=== PATIENT | female | born 1945 | race Caucasian/White ===

== ENCOUNTER 2016-08-03 11:40 | Emergency (ER) | payer MEDICARE, OTHER ==
[2016-08-03 11:34] LABS: BASOPHILS 0.4 %; BASOPHILS ABSOLUTE 0.03 10/3/uL (0.0-0.16); EOSINOPHILS 1.1 %; EOSINOPHILS ABSOLUTE 0.09 10/3/uL (0.0-0.53); HEMOGLOBIN 10.4 g/dL (12.0-16.0); IMMATURE GRANULOCYTES 0.2 %; IMMATURE GRANULOCYTES ABSOLUTE 0.02 10/3/uL (0.0-0.11); LYMPHOCYTES 17.4 %; LYMPHOCYTES ABSOLUTE 1.39 10/3/uL (0.67-4.30); MEAN CORPUSCULAR HEMOGLOB 21.6 pg (26.0-34.0); MEAN PLATELET VOLUME 9.7 fL (9.2-13.0); MONOCYTES 6.5 %; MONOCYTES ABSOLUTE 0.52 10/3/uL (0.21-1.20); NEUTROPHILS 74.4 %; NEUTROPHILS ABSOLUTE 5.96 10/3/uL (2.02-8.40); PLATELET COUNT 332 10/3/uL (150-400); RED CELL COUNT 4.82 10/6/uL (4.0-5.6)
[2016-08-03 11:35] LABS: HEMATOCRIT 34.7 % (36.0-48.0); MANUAL DIFF NO %
[~2016-08-03 11:40] MED LIST: ASAB PO; COZ25 PO; COZAAR100 MG PO; DSS PO; FLEX PO; HALF81 PO; KLONO1 PO; LACT30UDL PO/LIQ; LEVOTHYROXIN25 MCG PO; METPAKSF PO; MOBIC15 MG PO; MOMUD PO; MSCONT15 PO; MSCONTIN PO; NATURA2 OPH; NEXIUM20 M1 PO; NEXIUM40 PO; PCET PO; PERCOCET 10/3251 TAB PO; PERCOCET1 TA4 PO; PRILOSEC OTC20 MG PO; STOOL SOFTEN100 MG PO; VITAMIN D31000 UNIT PO; VIVELLE-DOT0.075 MG TOP; VIVELLE-DOT0.1 MG TOP; X5 PO; ZOFRAN8 PO; [UNRECOGNIZED DRUG - OTHER] PO
[2016-08-03 11:53] LABS: A/G RATIO 0.9 (0.7-1.9); ALBUMIN 3.8 G/DL (3.5-5.0); ALKALINE PHOSPHATASE 182 U/L (45-117); BUN (BLOOD UREA NITROGEN) 6 MG/DL (6-23); CALCIUM, SERUM 11.2 MG/DL (8.5-10.4); CHLORIDE, SERUM 106 MMOL/L (96-112); CO2 (CARBON DIOXIDE) 27 MMOL/L (24-34); CREATININE 0.87 MG/DL (0.55-1.02); GFR AFRICAN AMERICAN 78 ML/MIN (>=60); GFR NON AFRICAN AMERICAN 67 ML/MIN (>=60); GLOBULIN 4.4 G/DL (2.5-4.1); GLUCOSE, SERUM 112 MG/DL (60-99); POTASSIUM, SERUM 4.2 MMOL/L (3.5-5.3); SGOT(AST) 15 U/L (5-40); SGPT(ALT) 18 U/L (5-65); SODIUM, SERUM 141 MMOL/L (135-148); TOTAL BILIRUBIN 0.4 MG/DL (0-1.2); TOTAL PROTEIN 8.2 G/DL (6.0-8.5)
[2016-08-03 11:55] LABS: PLATELET ESTIMATE ADQ (ADEQUATE)
[2016-09-11] MEDS ORDERED: VIVELLE SY0.05 MG/24 TOP (10:20)
== END 2016-08-03 12:34 | disposition home or self-care (01) ==
LOC: ER 11:40
PROVIDERS: Emergency Medicine
DX: J04.0 Acute laryngitis (principal); I10 Essential (primary) hypertension; E11.9 Type 2 diabetes mellitus without complications; Z88.5 Allergy status to narcotic agent; Z88.2 Allergy status to sulfonamides; Z88.1 Allergy status to other antibiotic agents; Z88.8 Allergy status to other drugs, medicaments and biological substances; Z91.09 Other allergy status, other than to drugs and biological substances; Z79.82 Long term (current) use of aspirin; Z79.899 Other long term (current) drug therapy
CPT/HCPCS: 71010; 80053; 85025; 87070; 87880; 93005; 99284

== ENCOUNTER 2016-09-17 07:13 | Day surgery (SDC) | payer MEDICARE, OTHER ==
--- NOTE | ~2016-09-17 | OP ---
Record Of Operation [facility] [address] [place]. [address] NAME: LEONIDAS ACEVEDO : 45 STATUS : REG [facility] [place] PAT#: [id number] AGE: 70 ADM/REG DATE : 09/17/16 MR#: [id number] REPORT SERV DATE: 09/17/16 DICTATED BY: RAMÓN PALACIOS DATE: 09/17/16 REPORT STATUS : Draft TRANSCRIBED BY: MODBenny DATE: 09/17/16 DATE OF PROCEDURE: 09/17/2016 PREOPERATIVE DIAGNOSIS: Primary hyperparathyroidism. POSTOPERATIVE DIAGNOSIS: Primary hyperparathyroidism. PROCEDURE: Minimally invasive parathyroidectomy with resection of left inferior parathyroid adenoma using intraoperative parathyroid hormone measurement. ELEVATOR CONSTRUCTOR HELPER: Alberto Ann. ANESTHESIA: General. ESTIMATED BLOOD LOSS: Less than 10 mL. BRIEF HISTORY AND DESCRIPTION OF FINDINGS: The patient had been diagnosed with clear biochemical primary hyperparathyroidism with multiple musculoskeletal and neuropsychiatric symptoms as well as documented osteoporosis. Preoperative surgeon performed ultrasound that strongly suggested a left inferior parathyroid adenoma. Intraoperatively, the preincision intraoperative parathyroid hormone level (IOPTH) was 251 pg/mL. A prominent left inferior adenoma was readily resected and the 10-minute post-excision IOPTH was 38.7 pg/mL, consistent with curative resection. DETAILS OF PROCEDURE: The patient arrived in the operating suite and was placed on the table in supine position. General anesthesia was obtained via an endotracheal tube. The patient was appropriately positioned. The neck and upper chest were prepped and draped in a sterile manner. A small cervical collar incision was performed. Subplatysmal flaps were elevated with blunt dissection and cautery. Strap muscles were split in the midline. A plane of dissection was created between the inferior pole of the left lobe of the thyroid and overlying strap muscles. The inferior pole of the thyroid was grasped with an Allis and retracted anteromedially exposing a maroon turgid parathyroid, which was dissected free with cautery and small vessels were divided between clips. The capsule was not violated and the gland was totally resected and it was sent for permanent histology. Hemostasis was excellent. The strap muscles were approximated with 3-0 Vicryl, platysma with 4-0 Vicryl, and skin was closed with subcuticular 5-0 Monocryl once the post-excision IOPTH value was returned as above. Sterile dressing was applied and the patient was awakened, extubated, and taken to PACU. SR/BLANCA Ramón Palacios M.D. Record Of [place] [id number] [place]. [address] NAME: LEONIDAS ACEVEDO : 45 STATUS : REG [facility] [place] PAT#: [id number] AGE: 70 ADM/REG DATE : 09/17/16 MR#: [id number] REPORT SERV DATE: 09/17/16 DICTATED BY: RAMÓN PALACIOS DATE: 09/17/16 REPORT STATUS : Draft TRANSCRIBED BY: BLANCA DATE: 09/17/16 / [id number] CC: Franki Florian M.D.
[~2016-09-17 07:13] MED LIST changes: +VIVELLE SY0.05 MG/24 TOP
[2016-09-17 07:50] LABS: HEMATOCRIT 32.4 % (36.0-48.0); HEMOGLOBIN 9.9 g/dL (12.0-16.0)
[2016-09-17 08:05] LABS: PTH (INTRAOPERATIVE) 251.2 PG/ML (10.0-65.0); PTH TAT 0 Hrs 05 Mins
[2016-09-17 08:59] LABS: PTH (INTRAOPERATIVE) 38.7 PG/ML (10.0-65.0); PTH TAT 0 Hrs 00 Mins
[2016-09-17 09:00] LABS: PTH (INTRAOPERATIVE) 31.6 PG/ML (10.0-65.0); PTH TAT 0 Hrs 00 Mins
== END 2016-09-17 12:06 | disposition home or self-care (01) ==
LOC: SDC 07:13
PROVIDERS: Specialist
PROC: 0GBP0ZZ Excision of Left Inferior Parathyroid Gland, Open Approach (ICD-10-PCS; principal; 2016-09-17 08:30)
DX: E21.0 Primary hyperparathyroidism (principal); D64.9 Anemia, unspecified; E03.9 Hypothyroidism, unspecified; K21.9 Gastro-esophageal reflux disease without esophagitis; K44.9 Diaphragmatic hernia without obstruction or gangrene; K31.84 Gastroparesis; I49.9 Cardiac arrhythmia, unspecified; I34.1 Nonrheumatic mitral (valve) prolapse; E78.00 Pure hypercholesterolemia, unspecified; G43.909 Migraine, unspecified, not intractable, without status migrainosus; Z98.42 Cataract extraction status, left eye; Z98.41 Cataract extraction status, right eye; Z90.49 Acquired absence of other specified parts of digestive tract; Z96.1 Presence of intraocular lens; Z90.89 Acquired absence of other organs; Z90.710 Acquired absence of both cervix and uterus; Z88.5 Allergy status to narcotic agent; Z88.2 Allergy status to sulfonamides; Z88.4 Allergy status to anesthetic agent; Z91.048 Other nonmedicinal substance allergy status; Z88.8 Allergy status to other drugs, medicaments and biological substances
CPT/HCPCS: 80053; 83970; 85014; 85018; 88305; 88312; A9270-GY; C1769; J0690; J2250; J2405; J2710; J3010